=== PATIENT | male | born 1950 | race Caucasian/White ===

== ENCOUNTER 2016-07-24 19:21 | Inpatient (IN) | payer OTHER ==
[~2016-07-24] VITALS: Ht 177.8 cm; Wt 93.4 kg
--- NOTE | 2016-07-24 20:46 | NUR ---
PT CAME TO ED TODAY W/ COMPLAINT OF LEFT GROIN PAIN X 1 WEEK. PT SEE BY PMD 4 DAYS AGO AND TOLD HE HAD A STRAINED MUSCLE, BUT PT REPORTS HE CAME TO THE ED BECAUSE PAIN IS ONGOING AT THIS TIME. PT DENIES ANY ABDOMINAL OR TESTICULAR PAIN. PT A&O X 4, BREATHING EVEN AND UNLABORED, WITH NO VISUAL SIGNS OF ACUTE OR RESP DISTRESS NOTED.
[2016-07-24 21:06] LABS: BASOPHIL % 0.5 % (0-2); PLATELET COUNT 274 x10^3mcL (130-400); RED CELL DISTRIBUTION WIDTH 14.1 % (11.5-14.5)
[2016-07-24 21:29] LABS: CALCIUM 8.4 mg/dL (8.5-10.1); CARBON DIOXIDE 24.4 mmol/L (21-32); CHLORIDE SERUM 105 mmol/L (98-107); GFR1 > 60 mL/min; GLUCOSE SERUM 109 mg/dL (74-106); POTASSIUM SERUM 3.6 mmol/L (3.5-5.1); SODIUM SERUM 140 mmol/L (136-145)
[2016-07-24 21:33] LABS: ALBUMIN 3.6 g/dL (3.4-5.0); ALKALINE PHOSPHATASE 67 U/L (46-116); ALT/SGPT 22 U/L (16-63); AMYLASE 34 U/L (25-115); AST/SGOT 12 U/L (15-37); BILIRUBIN TOTAL 0.16 mg/dL (0.20-1.00); LIPASE 99 IU/L (73-393); TOTAL PROTEIN, SERUM 7.1 g/dL (6.4-8.2)
[2016-07-24 21:49] LABS: microscopic required? NO
[2016-07-24 22:00] LABS: UA SPECIFIC GRAVITY >=1.030 (1.005-1.035); urine erythrocyte NEGATIVE (NEGATIVE)
--- NOTE | 2016-07-24 22:16 | NUR ---
PT RESTING ON GURNEY IN POSITION OF COMFORT. HE IS A&O X 4, BREATHING EVEN AND UNLABORED, WITH NO VISUAL SIGNS OF ACUTE OR RESP DISTRESS NOTED. BED IN LOWEST POSITION, SIDE RAILS UP X 2, AND CALL LIGHT IN REACH. WILL CONTINUE TO MONITOR.
[2016-07-24] MEDS ORDERED: IBUPROFEN600 MG PO (23:26)
[2016-07-24] MEDS ORDERED: HYDROCHLOROTHIA25 MG PO (23:26)
--- NOTE | 2016-07-25 00:18 | NUR ---
REPORT CALLED TO SIL[facility]NA ON [facility] FOR ADMISSION OF THIS PT.
--- NOTE | 2016-07-25 00:36 | NUR ---
PLEASE ENTER FULL NAMES OF STUDENT/RN Documentation completed by (Student Nurse): REGGIE SONG Documentation reviewed by (Registered Nurse): NOHEMI LOPEZ
--- NOTE | 2016-07-25 00:50 | NUR ---
RECEIVED PT FROM ED VIA ROMIE ACCOMPANIED BY RN. PT STATES ABD PAIN 2/10 TOLERABLE. REFUSED PAIN MEDS AT THIS TIME. IV ON RAC, INTACT. ORIENTED PT TO ROOM. BED IN LOWEST POSITION. SIDE RAILS UP X2. DEMONSTRATED HOW TO USE THE CALL LIGHT. WILL CONTINUE TO MONITOR.
[2016-07-25 00:56] VITALS: BP 149/77
[2016-07-25 01:51] VITALS: BP 149/77
[2016-07-25 02:56] LABS: T3 TOTAL 1.07 ng/mL
[2016-07-25 03:01] LABS: FREE T4 1.05 ng/dL (0.76-1.46); FREE THYROXINE INDEX 2.7 ug/dL (1.4-4.5); T4(THYROXINE) 7.8 ug/dL (4.7-13.3)
[2016-07-25 05:17] VITALS: BP 126/75
--- NOTE | 2016-07-25 06:01 | NUR ---
PT SLEPT WELL DURING SHIFT. NO C/O ABD PAIN. NO DISTRESS NOTED. IV ON RAC, NS INFUSING. SAFETY MEASURES MAINTAINED. WILL ENDORSE CONTINUITY OF CARE TO ONCOMING RN.
[2016-07-25 06:05] LABS: BASOPHIL % 0.5 % (0-2); PLATELET COUNT 246 x10^3mcL (130-400); RED CELL DISTRIBUTION WIDTH 14.1 % (11.5-14.5)
[2016-07-25 06:31] LABS: CALCIUM 8.1 mg/dL (8.5-10.1); CARBON DIOXIDE 27.9 mmol/L (21-32); CHLORIDE SERUM 107 mmol/L (98-107); CREATININE SERUM 0.8 mg/dL (0.7-1.3); GFR1 > 60 mL/min; GLUCOSE SERUM 100 mg/dL (74-106); MAGNESIUM 1.8 mg/dL (1.8-2.4); PHOSPHOROUS 3.9 mg/dL (2.5-4.9); POTASSIUM SERUM 3.8 mmol/L (3.5-5.1); SODIUM SERUM 141 mmol/L (136-145)
--- NOTE | 2016-07-25 07:40 | NUR ---
A/O X4. CLEAR SPEECH. FOLLOW COMMANDS. ON TEL 36 HR 66. RADIAL AND PEDAL PULSES PALPABLE. NO EDEMA OR SWELLING NOTED. <3 SECS CAP REFILL. ON RA SAT 99%. BREATHING EVEN AND UNLABORED. CLEAR LUNG SOUNDS. NO NVD. COMPLAINS OF SLIGHT DISCOMFORT BEFORE SHIFT BUT NONE THIS TIME. VOIDING ADEQUATELY. HAS MILD GENERALIZED WEAKNESS. Pt AMBULATORY WITH STEADY GAIT. NO SKIN TEAR OR OPEN WOUND. DENIES PAIN. IV SITE INTACT ON RAC. NS INFUSING WELL AT 50 ML/HR. WILL CONTINUE TO MONITOR.
--- NOTE | 2016-07-25 08:22 | NUR ---
TOOK MEDS WITHOUT DIFFICULTY. DENIES PAIN AT THIS TIME .
[2016-07-25 10:42] VITALS: BP 155/78
[2016-07-25 13:58] VITALS: BP 145/72
[2016-07-25] MEDS ORDERED: CIPRO500 MG PO (14:47)
[2016-07-25] MEDS ORDERED: FLO4 PO (14:48)
[2016-07-25] MEDS ORDERED: COLACE100 MG PO (14:50)
[2016-07-25] MEDS ORDERED: NORCO1 TA2 PO (14:50)
[2016-07-25 14:54] VITALS: BP 145/72
--- NOTE | 2016-07-25 15:40 | NUR ---
DC INSTRUCTION AND SCRIPT GIVEN. VERBALIZE UNDERSTANDING. IV SITE INTACT AND DC'D. TELEBOX CLEANED AND RETURNED. WILL ESCORT DOWN THE LOBBY.
--- NOTE | 2016-07-26 08:43 | NUR ---
ECHO NOT DONE PT. DISCHARGED
== END 2016-07-25 15:45 | disposition home or self-care (01) | DRG 394 ==
LOC: ED 19:21 → DU 23:28
PROVIDERS: Emergency Medicine; ADMIT Family Medicine
DX: K40.91 Unilateral inguinal hernia, without obstruction or gangrene, recurrent (principal); D68.69 Other thrombophilia; N41.0 Acute prostatitis; K40.90 Unilateral inguinal hernia, without obstruction or gangrene, not specified as recurrent; E11.65 Type 2 diabetes mellitus with hyperglycemia; I10 Essential (primary) hypertension; N40.0 Benign prostatic hyperplasia without lower urinary tract symptoms; E78.5 Hyperlipidemia, unspecified; F17.210 Nicotine dependence, cigarettes, uncomplicated; Z68.29 Body mass index [BMI] 29.0-29.9, adult
CPT/HCPCS: 82962; 83880; 84439; J7030; Q0092

== ENCOUNTER 2017-01-12 11:35 | Emergency (ER) | payer OTHER ==
[~2017-01-12 11:35] MED LIST: CIPRO500 MG PO; COLACE100 MG PO; FLO4 PO; HYDROCHLOROTHIA25 MG PO; IBUPROFEN600 MG PO; NORCO1 TA2 PO
[2017-01-12 14:56] VITALS: BP 155/85
== END 2017-01-12 14:56 | disposition home or self-care (01) ==
LOC: ED 11:35
DX: L84 Corns and callosities (principal); I10 Essential (primary) hypertension; Z88.0 Allergy status to penicillin

== ENCOUNTER 2017-02-01 21:59 | Emergency (ER) | payer OTHER ==
[2017-02-01 22:32] VITALS: BP 152/91
== END 2017-02-01 22:32 | disposition home or self-care (01) ==
LOC: ED 21:59
DX: M25.774 Osteophyte, right foot (principal); Z88.0 Allergy status to penicillin

== ENCOUNTER 2018-07-16 16:31 | Emergency (ER) | payer OTHER ==
[~2018-07-16] VITALS: Ht 177.8 cm; Wt 78.5 kg
[2018-07-16 17:03] VITALS: Ht 177.8 cm; Wt 78.5 kg
[2018-07-16 19:30] LABS: BASOPHIL % 0.7 % (0-2); PLATELET COUNT 292 x10^3mcL (130-400)
[2018-07-16 19:40] LABS: CALCIUM 9.1 mg/dL (8.5-10.1); CARBON DIOXIDE 27.3 mmol/L (21-32); CHLORIDE SERUM 103 mmol/L (98-107); CREATININE SERUM 0.9 mg/dL (0.7-1.3); GFR1 > 60 mL/min; GLUCOSE SERUM 101 mg/dL (74-106); POTASSIUM SERUM 3.6 mmol/L (3.5-5.1); SODIUM SERUM 139 mmol/L (136-145)
[2018-07-16 19:43] LABS: RED CELL DISTRIBUTION WIDTH 14.6 % (11.5-14.5)
[2018-07-16 19:44] LABS: ALKALINE PHOSPHATASE 70 U/L (46-116); ALT/SGPT 28 U/L (16-63); AST/SGOT 13 U/L (15-37); BILIRUBIN TOTAL 0.23 mg/dL (0.20-1.00); TOTAL PROTEIN, SERUM 7.7 g/dL (6.4-8.2)
[2018-07-16 20:59] VITALS: BP 131/76
== END 2018-07-16 20:59 | disposition home or self-care (01) ==
LOC: ED 16:31
PROVIDERS: Emergency Medicine
DX: R55 Syncope and collapse (principal); T46.4X5A Adverse effect of angiotensin-converting-enzyme inhibitors, initial encounter; I10 Essential (primary) hypertension; F32.9 Major depressive disorder, single episode, unspecified; Y92.89 Other specified places as the place of occurrence of the external cause
CPT/HCPCS: J8597; Q0162